=== PATIENT | female | born 1950 | race African-American/Black ===

== ENCOUNTER 2017-07-09 07:48 | Day surgery (SDC) | payer MEDICARE, MEDICAID ==
[~2017-07-09 07:48] MED LIST: Acetaminophen TAB* 325 MG PO PRN; Buffered Lidocaine 0.9% SYRIN* 5 ML/SYR SYRINGE INTRADERM ONE
[2017-07-09] MEDS ORDERED: Midazolam* 1 MG/ML 2 ML VIAL (2 MG) ONE (10:25)
[2017-07-09] MEDS ORDERED: fentaNYL* 50 MCG/ML 2 ML VIAL (100 MCG VIAL) ONE (10:33)
[2017-07-09 10:52] VITALS: BP 146/81
--- NOTE | 2017-07-09 11:20 | OP ---
OPERATIVE NOTE: DATE OF OPERATION: 07/09/17 DATE OF : 1950 SURGEON: Zan Chaparro M.D. PREOPERATIVE DIAGNOSIS: Cataract right eye. POSTOPERATIVE DIAGNOSIS: Cataract right eye. OPERATIVE PROCEDURE: Phacoemulsification right eye with IOL. PROCEDURE: The patient was brought to the operating room after being given 1/2% Alcaine with epinep hrine drops in the preoperative area. The eye was prepped and draped in the usual sterile fashion. Sterile drape and eyelid speculum were placed. Again, topical 1/2% Alcaine with epinephrine was gi rogelio. A paracentesis incision was made at the 9 o'clock position with the No.75 blade. Clear cornea incision 2.2 x 2.2-mm was created at the 12 o'clock position starting at the anterior limbus using the 2.2-mm keratome. The anterior chamber was irrigated with 0.4 mL of 1% non-preservative intracam eral lidocaine and filled with DisCoVisc. A capsulorrhexis was completed using the cystotome and krsitopher duran Utrata forceps. Hydrodissection was performed with balanced salt solution. The lens nucleus was r emoved with the Phacoemulsification handpiece without incident. Cortex was removed with the irrigat ion-aspiration handpiece. The capsular bag was re-inflated using DisCoVisc and an SN60WF 25.5 impla nt was inserted with the shooter followed by an iStent [id number] inserted into the trabecular meshwork using a shooter at the 3 o'clock position. The irrigation-aspiration handpiece was used to remove all residual DisCoVisc. The eye was refilled with balanced salt solution and the wound checked and found to be watertight. Topical Maxitrol drops were given. [id number]/[facility] #: [id number]
[2017-07-09] MEDS ORDERED: Povidone Iodine 5% OPTH* 30 ML BTL ONE (11:37)
[2017-07-09] MEDS ORDERED: Proparacaine 0.5% OPHTH.SOL* 15 ML BTL ONE (11:37)
[2017-07-09] MEDS ORDERED: Neomycin/Polymy/Dex OPTH.SUSP* MAXITROL 0.1% 5 ML ONE (11:37)
[2017-07-09] MEDS ORDERED: Lidocaine 1% MPF* 2 ML VIAL ONE (11:37)
[2017-07-09] MEDS ORDERED: acetaZOLAMIDE TAB* 250 MG ONE (11:37)
[2017-07-09] MEDS ORDERED: Ketorolac 0.5% OPHTH (NF) 0.5 % 5 ML BTL ONE (11:37)
[2017-07-09] MEDS ORDERED: Lidocaine 2% EPI 1:200000 MPF* 20 ML VIAL ONE (11:37)
[2017-07-09] MEDS ORDERED: Cyclopentolate 1% OPTH.SOL* 2 ML BTL ONE (11:37)
[2017-07-09] MEDS ORDERED: Phenylephrine 2.5% OPTH.SOL* 2 ML BTL ONE (11:37)
[2017-07-09] MEDS ORDERED: Buffered Lidocaine 0.9% SYRIN* 5 ML/SYR SYRINGE ONE (11:37)
== END 2017-07-09 11:47 | disposition home or self-care (01) ==
LOC: OREAST 07:48
PROVIDERS: ATTEND Specialist
DX: E11.36 Type 2 diabetes mellitus with diabetic cataract (principal); H25.813 Combined forms of age-related cataract, bilateral; E11.39 Type 2 diabetes mellitus with other diabetic ophthalmic complication; H40.1131 Primary open-angle glaucoma, bilateral, mild stage; E11.3293 Type 2 diabetes mellitus with mild nonproliferative diabetic retinopathy without macular edema, bilateral; H18.51 Endothelial corneal dystrophy; I10 Essential (primary) hypertension; E78.5 Hyperlipidemia, unspecified; M19.049 Primary osteoarthritis, unspecified hand; L91.8 Other hypertrophic disorders of the skin; Z79.84 Long term (current) use of oral hypoglycemic drugs; Z79.82 Long term (current) use of aspirin; Z88.1 Allergy status to other antibiotic agents; Z88.8 Allergy status to other drugs, medicaments and biological substances; Z88.5 Allergy status to narcotic agent
CPT/HCPCS: A9270-GY; C1783; J2250; J3010; V2632

== ENCOUNTER 2017-07-16 08:12 | Day surgery (SDC) | payer MEDICARE, MEDICAID ==
[2017-07-16] MEDS ORDERED: Midazolam* 1 MG/ML 2 ML VIAL (2 MG) ONE (10:03)
[2017-07-16] MEDS ORDERED: fentaNYL* 50 MCG/ML 2 ML VIAL (100 MCG VIAL) ONE (10:03)
[2017-07-16 11:15] VITALS: BP 164/78
[2017-07-16] MEDS ORDERED: Proparacaine 0.5% OPHTH.SOL* 15 ML BTL ONE (11:53)
[2017-07-16] MEDS ORDERED: Ketorolac 0.5% OPHTH (NF) 0.5 % 5 ML BTL ONE (11:53)
[2017-07-16] MEDS ORDERED: Lidocaine 2% EPI 1:200000 MPF* 20 ML VIAL ONE (11:53)
[2017-07-16] MEDS ORDERED: Povidone Iodine 5% OPTH* 30 ML BTL ONE (11:53)
[2017-07-16] MEDS ORDERED: Phenylephrine 2.5% OPTH.SOL* 2 ML BTL ONE (11:53)
[2017-07-16] MEDS ORDERED: Neomycin/Polymy/Dex OPTH.SUSP* MAXITROL 0.1% 5 ML ONE (11:53)
[2017-07-16] MEDS ORDERED: Cyclopentolate 1% OPTH.SOL* 2 ML BTL ONE (11:53)
[2017-07-16] MEDS ORDERED: Lidocaine 1% MPF* 2 ML VIAL ONE (11:53)
[2017-07-16] MEDS ORDERED: acetaZOLAMIDE TAB* 250 MG ONE (11:53)
[2017-07-16] MEDS ORDERED: Buffered Lidocaine 0.9% SYRIN* 5 ML/SYR SYRINGE ONE (11:54)
--- NOTE | 2017-07-16 13:01 | OP ---
DATE OF OPERATION: 07/16/2017 - [facility] DATE OF : 1950. SURGEON: Zan Chaparro M.D. PREOPERATIVE DIAGNOSIS: Cataract left eye. POSTOPERATIVE DIAGNOSIS: Cataract left eye. OPERATIVE PROCEDURE: Phacoemulsification left eye with IOL and iStent. DESCRIPTION OF PROCEDURE: The patient was brought to the operating room after being given 1/2% Alcaine with epinephrine drops in the preoperative area. The eye was prepped and draped in the usual sterile fashion. Sterile drape and eyelid speculum were placed. Again, topical 1/2% Alcaine with epinephrine was given. A paracentesis incision was made at the 3 o'clock position with the No.75 blade. Clear cornea incision 2.2 x 2.2-mm was created at the 6 o'clock position starting at the anterior limbus using the 2.2-mm keratome. The anterior chamber was irrigated with 0.4 mL of 1% non-preservative intracameral lidocaine and filled with DisCoVisc. A capsulorrhexis was completed using the cystotome and the Utrata forceps. Hydrodissection was performed with balanced salt solution. The lens nucleus was removed with the Phacoemulsification handpiece without incident. Cortex was removed with the irrigation-aspiration handpiece. The capsular bag was re-inflated using DisCoVisc and an SN60WF 25.5 implant was inserted with the shooter, followed by an iStent [id number] inserted with the shooter into the trabecular meshwork at the 9 o'clock position. The irrigation-aspiration handpiece was used to remove all residual DisCoVisc. The eye was refilled with balanced salt solution and the wound checked and found to be watertight. Topical Maxitrol drops were given. [id number]/[facility] #: [id number] [facility]
== END 2017-07-16 11:19 | disposition home or self-care (01) ==
LOC: OREAST 08:12
PROVIDERS: ATTEND Specialist
DX: E11.36 Type 2 diabetes mellitus with diabetic cataract (principal); H25.812 Combined forms of age-related cataract, left eye; Z96.1 Presence of intraocular lens; H40.1131 Primary open-angle glaucoma, bilateral, mild stage; E11.3293 Type 2 diabetes mellitus with mild nonproliferative diabetic retinopathy without macular edema, bilateral; H18.51 Endothelial corneal dystrophy; I10 Essential (primary) hypertension; Z79.84 Long term (current) use of oral hypoglycemic drugs; Z79.82 Long term (current) use of aspirin; Z88.8 Allergy status to other drugs, medicaments and biological substances; Z88.1 Allergy status to other antibiotic agents; E78.5 Hyperlipidemia, unspecified; Z88.5 Allergy status to narcotic agent; L91.8 Other hypertrophic disorders of the skin; M19.049 Primary osteoarthritis, unspecified hand
CPT/HCPCS: A9270-GY; C1783; J2250; J3010; V2632

== ENCOUNTER 2018-11-15 10:04 | Emergency (ER) | payer MEDICARE, MEDICAID ==
[2018-11-15] MEDS ORDERED: Ibuprofen TAB* 600 MG PO ONE (11:39)
[2018-11-15 13:21] VITALS: BP 142/80
--- NOTE | 2018-11-15 13:27 | ED ---
Lower Extremity - HPI Summary HPI Summary: Patient is a 68-year-old female presenting to the ED after a fall yesterday. She states she is having pain to the left knee. She states wall was in a shopping cart she twisted the left knee and fell. She denies any other injuries during the fall. She denies any other pain at this time. She is not taken anything [id number] [employer]. She denies any numbness or tingling. She states she was unable to ambulate yesterday due to swelling, however the swelling decreased today and she has been able to bear weight, however not able to ambulate due to pain. She uses a cane at baseline. - History of Current Complaint Chief Complaint: EDExposureHeatCold Stated Complaint: FELL/LEFT KNEE INJURY Time Seen by Provider: 11/15/18 10:28 Hx Obtained From: Patient Mechanism Of Injury: Twisted Onset of Pain: Minutes Onset/Duration: Minutes Severity Initially: Mild Severity Currently: Mild Pain Intensity: 10 Pain Scale Used: 0-10 Numeric Timing: Constant Location: Is Discrete @ - left knee Associated Signs And Symptoms: Negative: Swelling, Redness, Bruising, Weakness Aggravating Factor(s): Standing, Ambulation Alleviating Factor(s): Rest Able to Bear Weight: Yes - Risk Factors Gout Risk Factors: Negative DVT Risk Factors: Negative Septic Arthritis Risk Factor: Negative - Allergies/Home Medications Allergies/Adverse Reactions: Allergies Allergy/AdvReac Type Severity Reaction Status Date / Time clonidine Allergy See Comment Verified 11/15/18 10:15 sulfamethoxazole Allergy Hives Verified 11/15/18 10:15 [From Bactrim] trimethoprim [From Bactrim] Allergy Hives Verified 11/15/18 10:15 Home Medications: Home Medications Metoprolol Succinate 100 mg PO DAILY 11/15/18 [History Confirmed 11/15/18] PMH/Surg Hx/FS Hx/Imm Hx Previously Healthy: Yes Endocrine/Hematology History: Reports: Hx Diabetes - type 2 Cardiovascular History: Reports: Hx Hypertension - on meds Denies: Hx Pacemaker/ICD, Other Cardiovascular Problems/Disorders Respiratory History: Denies: Other Respiratory Problems/Disorders GI History: Reports: Hx Gastroesophageal Reflux Disease Denies: Other GI Disorders History: Denies: Hx Renal Disease Musculoskeletal History: Reports: Hx Arthritis - all over, Hx Tendonitis - left ankle Denies: Hx Osteoporosis, Other Musculoskeletal History Sensory History: Reports: Hx Cataracts - mayur, Hx Contacts or Glasses - glasses, Hx Glaucoma Denies: Hx Hearing Aid Opthamlomology History: Reports: Hx Cataracts - mayur, Hx Contacts or Glasses - glasses, Hx Glaucoma Neurological History: Reports: Hx Migraine Denies: Other Neuro Impairments/Disorders Psychiatric History: Denies: Hx Panic Disorder - Cancer History Hx Chemotherapy: No Hx Radiation Therapy: No - Surgical History Surgery Procedure, Year, and Place: BILATERAL CARPAL TUNNEL HANDS. LEFT KNEE REMOVED MASS. RIGHT SHOULDER REPAIR and right thumb, 10/2009. TUBAL LIGATIOn. left thumb and long finger 2010 Hx Anesthesia Reactions: No - Immunization History Hx Pertussis Vaccination: No Immunizations Up to Date: Yes Infectious Disease History: No Infectious Disease History: Denies: Traveled Outside the [place] in Last 30 Days - Family History Known Family History: Positive: None - Social History Occupation: Employed Full-time Lives: With Family Alcohol Use: None Hx Substance Use: No Substance Use Type: Reports: None Hx Tobacco Use: No Smoking Status (MU): Never Smoked Tobacco Review of Systems Negative: Fever, Chills, Fatigue, Skin Diaphoresis Negative: Dental Pain Negative: Palpitations, Chest Pain Negative: Shortness Of Breath, Cough Genitourinary: Negative Positive: no symptoms reported, see HPI Positive: Arthralgia - left knee pain. Negative: Myalgia Neurological: Negative All Other Systems Reviewed And Are Negative: Yes - that he says he does doesn't mind doing for him Physical Exam Triage Information Reviewed: Yes Vital Signs On Initial Exam: Initial Vitals Temp Pulse Resp BP Pulse Ox 98.3 F 78 16 145/81 97 11/15/18 10:11 11/15/18 10:11 11/15/18 10:11 11/15/18 10:11 11/15/18 10:11 Vital Signs Reviewed: Yes Appearance: Positive: Well-Appearing, Well-Nourished Skin: Positive: Warm, Skin Color Reflects Adequate Perfusion - I Head/Face: Positive: Normal Head/Face Inspection Eyes: Positive: EOMI, BUBBA, Conjunctiva Clear Neck: Positive: Supple, No Lymphadenopathy Respiratory/Lung Sounds: Positive: Clear to Auscultation, Breath Sounds Present Cardiovascular: Positive: Normal, RRR Musculoskeletal: Positive: Pain @ - left knee pain Neurological: Positive: Speech Normal Psychiatric: Positive: Affect/Mood Appropriate Diagnostics - Vital Signs Vital Signs Temp Pulse Resp BP Pulse Ox 11/15/18 10:11 98.3 F 78 16 145/81 97 - Laboratory Lab Statement: Any lab studies that have been ordered have been reviewed, and results considered in the medical decision making process. Lower Extremity Course/Dx - Course Course Of Treatment: Patient is evaluated for left knee pain. Patient is able to flex and extend the knee, however with discomfort. Mega's and Michelle's test not performed due to pain. There is no swelling or ecchymosis noted to the knee. X-ray obtained which has no acute osseous injury. She will follow- up with orthopedics next week and knee immobilizer is given. Ibuprofen given in the ED. - Diagnoses Provider Diagnoses: Left knee pain Discharge - Sign-Out/Discharge Documenting (check all that apply): Patient Departure Patient Received Moderate/Deep Sedation with Procedure: No - Discharge Plan Condition: Stable Disposition: HOME Patient Education Materials: Knee Pain (ED) Referrals: Celestino Mccartney MD [Medical Doctor] - Cary Morton MD [Primary Care Provider] - Additional Instructions: Ibuprofen 600mg three times daily for pain and inflammation Follow up with orthopedics Knee immobilizer - Billing Disposition and Condition Condition: STABLE Disposition: Home
== END 2018-11-15 13:20 | disposition home or self-care (01) ==
LOC: ED 10:04
DX: M25.562 Pain in left knee (principal); E11.9 Type 2 diabetes mellitus without complications; I10 Essential (primary) hypertension; Z88.2 Allergy status to sulfonamides
CPT/HCPCS: 99282; A9270-GY

== ENCOUNTER 2019-11-18 16:43 | Emergency (ER) | payer MEDICARE, MEDICAID ==
--- NOTE | 2019-11-18 17:20 | ED ---
Lower Extremity - HPI Summary HPI Summary: 61-year-old female presents to the emergency department today complaining of left foot pain on the lateral aspect with focal tenderness to the fifth digit which began after striking it against a folding chair approximately 7 days ago. Patient states her symptoms are not improving. Patient has not taken any medication prior to arrival for alleviation of her symptoms. Patient endorses 10 out of 10 pain which makes examination difficult however not impossible. Patient has full range of motion of the foot. There is no obvious deformity. No ecchymosis or erythema. Patient otherwise feels well and denies fever, chest pain, abdominal pain, pain with urination, shortness of breath, nausea, vomiting, diarrhea, cough. Surgical history and family history is noncontributory. - History of Current Complaint Chief Complaint: EDExtremityLower Stated Complaint: L FOOT INJURY PER PT Time Seen by Provider: 11/18/19 16:57 Hx Obtained From: Patient Onset of Pain: Immediate Onset/Duration: Days Severity Initially: Severe Severity Currently: Severe Pain Intensity: 10 Pain Scale Used: 0-10 Numeric Timing: Constant Location: Is Discrete @ - Left foot Character Of Pain: Sharp, Aching Aggravating Factor(s): Standing, Ambulation, Movement, Weight Bearing Alleviating Factor(s): Rest Able to Bear Weight: Yes - Allergies/Home Medications Allergies/Adverse Reactions: Allergies Allergy/AdvReac Type Severity Reaction Status Date / Time clonidine Allergy See Comment Verified 11/18/19 16:51 sulfamethoxazole Allergy Hives Verified 11/18/19 16:51 [From Bactrim] trimethoprim [From Bactrim] Allergy Hives Verified 11/18/19 16:51 Home Medications: Home Medications Amlodipine Besylate [Norvasc 10 mg tab] 10 mg PO QPM 07/03/17 [History Confirmed 11/18/19] Lisinopril/Hydrochlorothiazide [Zestoretic 20-25 mg-] 1 tab PO QPM 07/03/17 [ History Confirmed 11/18/19] Pravastatin Sodium [Pravachol] 40 mg PO QPM 07/03/17 [History Confirmed 11/18/19 ] Metoprolol Succinate 100 mg PO DAILY 11/15/18 [History Confirmed 11/18/19] PMH/Surg Hx/FS Hx/Imm Hx Endocrine/Hematology History: Denies: Hx Diabetes Cardiovascular History: Reports: Hx Hypertension - on meds Denies: Hx Pacemaker/ICD, Other Cardiovascular Problems/Disorders Respiratory History: Denies: Other Respiratory Problems/Disorders GI History: Reports: Hx Gastroesophageal Reflux Disease Denies: Other GI Disorders History: Denies: Hx Dialysis, Hx Renal Disease Musculoskeletal History: Reports: Hx Arthritis - all over, Hx Tendonitis - left ankle Denies: Hx Osteoporosis, Other Musculoskeletal History Sensory History: Reports: Hx Cataracts - mayur, Hx Contacts or Glasses - glasses, Hx Glaucoma Denies: Hx Hearing Aid Opthamlomology History: Reports: Hx Cataracts - mayur, Hx Contacts or Glasses - glasses, Hx Glaucoma Neurological History: Reports: Hx Migraine Denies: Other Neuro Impairments/Disorders Psychiatric History: Denies: Hx Panic Disorder - Cancer History Hx Chemotherapy: No Hx Radiation Therapy: No - Surgical History Surgery Procedure, Year, and Place: BILATERAL CARPAL TUNNEL HANDS. LEFT KNEE REMOVED MASS. RIGHT SHOULDER REPAIR and right thumb, 10/2009. TUBAL LIGATIOn. left thumb and long finger 2009. CATARACT Hx Anesthesia Reactions: No Infectious Disease History: No Infectious Disease History: Denies: Traveled Outside the [place] in Last 30 Days - Family History Known Family History: Positive: None - Social History Alcohol Use: None Hx Substance Use: No Substance Use Type: Reports: None Hx Tobacco Use: No Smoking Status (MU): Never Smoked Tobacco Review of Systems Constitutional: Negative Eyes: Negative ENT: Negative Cardiovascular: Negative Respiratory: Negative Gastrointestinal: Negative Genitourinary: Negative Positive: Arthralgia - albuterol level, Decreased ROM. Negative: Edema Skin: Negative Neurological/Mental Status: Negative Psychological: Normal All Other Systems Reviewed And Are Negative: Yes Physical Exam - Summary Physical Exam Summary: Patient has full range of motion of the left foot. Dorsalis pedis pulses 2+. With brisk capillary refill. Patient has full sensation and lower extremity. No obvious edema, deformity, ecchymosis. There is no tenderness with palpation of the ankle or fifth metacarpal head. There is tenderness with palpation of the fifth toe. Triage Information Reviewed: Yes Vital Signs On Initial Exam: Initial Vitals Temp Pulse Resp BP Pulse Ox 99 F 75 18 172/113 96 11/18/19 16:49 11/18/19 16:49 11/18/19 16:49 11/18/19 16:49 11/18/19 16:49 Vital Signs Reviewed: Yes Appearance: Positive: Well-Appearing, No Pain Distress, Well-Nourished Skin: Positive: Warm, Skin Color Reflects Adequate Perfusion Eyes: Positive: EOMI, BUBBA ENT: Positive: Hearing grossly normal Respiratory/Lung Sounds: Positive: Clear to Auscultation, Breath Sounds Present Cardiovascular: Positive: RRR, S1, S2 Musculoskeletal: Positive: Strength/ROM Intact Neurological: Positive: Sensory/Motor Intact, Alert, Oriented to Person Place, Time, Normal Gait, Facial Symmetry, Speech Normal Psychiatric: Positive: Normal, Affect/Mood Appropriate AVPU Assessment: Alert Procedures - Sedation Patient Received Moderate/Deep Sedation with Procedure: No - Splinting Left Lower Extremity Pre-Made Type: post op shoe Pre-Proc Neuro Vasc Exam: normal Post-Proc Neuro Vasc Exam: normal Splint Applied by Provider: Corky Flores [facility] - Vital Signs Vital Signs Temp Pulse Resp BP Pulse Ox 11/18/19 16:49 99 F 75 18 172/113 96 - Laboratory Lab Statement: Any lab studies that have been ordered have been reviewed, and results considered in the medical decision making process. Lower Extremity Course/Dx - Course Course Of Treatment: Patient was evaluated in the emergency department today for left foot pain. Vitals noted. X-ray of the right foot shows nondisplaced fracture of the proximal fifth phalanx. Moderate first MTP osteophyte arthropathy. Postop shoe was placed on the patient's left foot and she was given information to follow up with orthopedic doctor in 3-5 days for further evaluation and management. Patient to take Tylenol for pain. Patient discharged to outpatient follow-up. - Diagnoses Differential Diagnosis/HQI/PQRI: Positive: Arthritis, Fracture (Closed), Gout, Sprain, Strain Provider Diagnoses: Fracture of toe of left foot Discharge ED - Sign-Out/Discharge Documenting (check all that apply): Patient Departure - Discharge Plan Condition: Stable Disposition: HOME Patient Education Materials: Toe Fracture (ED) Referrals: Cary Morton MD [Primary Care Provider] - Leah Ba MD [Medical Doctor] - 3 Days Additional Instructions: You were seen in the emergency department today for a fracture of your fifth toe on your left foot. Please wear the post op shoe given to you today at the emergency department today until you are seen by an orthopedic doctor. You may take Tylenol as needed for pain. Please follow-up with the orthopedic doctor in 3-5 days for further evaluation and management. Return to activity as tolerated. Please return to the emergency department immediately if you develops any new or worsening symptoms. - Billing Disposition and Condition Condition: STABLE Disposition: Home - Attestation Statements Provider Attestation: I was available for consult. This patient was seen by the DIO. The patient was not presented to, seen by, or examined by me. Nayan Blankenship MD
[2019-11-18 18:30] VITALS: BP 168/90
== END 2019-11-18 18:30 | disposition home or self-care (01) ==
LOC: ED 16:43
DX: S92.515A Nondisplaced fracture of proximal phalanx of left lesser toe(s), initial encounter for closed fracture (principal); W22.8XXA Striking against or struck by other objects, initial encounter; Y92.9 Unspecified place or not applicable; M25.775 Osteophyte, left foot; I10 Essential (primary) hypertension; Z79.899 Other long term (current) drug therapy; Z88.2 Allergy status to sulfonamides; Z88.8 Allergy status to other drugs, medicaments and biological substances
CPT/HCPCS: 99282